=== PATIENT | male | born 1955 | race Caucasian/White ===

== ENCOUNTER 2022-01-10 18:43 | Observation (INO) ==
[2022-01-10] MEDS ORDERED: KETOROLAC 30 MG/ML VIAL IV ONE (18:59)
[2022-01-10] MEDS ORDERED: 0.9 % SODIUM CHLORIDE 1,000 ML IV ONE (18:59)
[2022-01-10] MEDS ORDERED: fentaNYL 100 MCG/2 ML VIAL IV ONE (19:29)
--- NOTE | 2022-01-10 19:53 | Emergency Department Note ---
Male Urogenital HPI General Chief complaint: Flank Pain Stated complaint: Kidney Stones Time Seen by Provider: 01/10/22 18:50 Source: patient Mode of arrival: ambulatory Limitations: no limitations History of Present Illness HPI Narrative: Narrative: Patient presents to the ED with complaints of right flank pain that started yesterday afternoon. He rates the pain 10/01. He also reports associated hematuria. He states that he recently had a kidney stone on the left side and feels the exact same way. He was evaluated by Dr. Bustos who had to go and surgically remove the stone also place a stent which was removed on 01/01/2022. Patient denies fever, chills, nausea, vomiting, abdominal trauma. He states the pain does radiate into his groin. Patient denies any other alleviating or aggravating factors. He states that he did take one of his oxycodone from his procedure which did help with some of the pain but it quickly came back. Related Data Home Medications Medication Instructions Recorded Confirmed atorvastatin 20 mg tablet 20 mg PO QHS 11/10/21 01/01/22 insulin glargine 100 unit/mL 40 unit subcut QPM 11/10/21 01/01/22 subcutaneous solution (Lantus U-100 Insulin) metformin 500 mg tablet 2,000 mg PO QPM 11/10/21 01/01/22 doxepin 50 mg capsule 50 mg PO QHS 12/18/21 01/01/22 indomethacin 25 mg capsule 25 mg PO TID PRN Pain 12/18/21 01/01/22 melatonin 3 mg capsule 6 mg PO HS 12/18/21 01/01/22 metoprolol tartrate 50 mg tablet 50 mg PO QAM 12/18/21 01/01/22 pen needle, diabetic 31 gauge x 12/18/21 01/01/22 5/32" tamsulosin 0.4 mg capsule 0.8 mg PO QHS 12/18/21 01/01/22 acetaminophen 500 mg tablet 1,000 mg PO DAILY PRN Pain 12/21/21 01/01/22 empagliflozin 25 mg tablet 12.5 mg PO QAM 12/21/21 01/01/22 semaglutide 1 mg/dose (4 mg/3 mL) 1 mg subcut WEEKLY 12/21/21 01/01/22 subcutaneous pen injector (Ozempic) Previous Rx's Medication Instructions Recorded hydrocodone 5 mg-acetaminophen 325 1 tab PO Q6H PRN pain #8 tabs 12/26/21 mg tablet sulfamethoxazole 800 1 tab PO BID #14 tabs 12/26/21 mg-trimethoprim 160 mg tablet (Bactrim DS) Allergies Allergy/AdvReac Type Severity Reaction Status Date / Time No Known Drug Allergies Allergy Verified 01/10/22 18:50 Review of Systems ROS ROS Narrative: Narrative: All systems ED: reviewed and negative except as stated. [facility] Narrative Patient History Narrative: Narrative: Medical/Surgical/Family History All Active Problems (Updated 01/10/22 @ 21:04 by Eduardo Haro DO) Calculus of kidney (Chronic) Type 2 diabetes mellitus with diabetic neuropathy (Chronic) HTN (hypertension) (Chronic) Back pain (Chronic) Neck pain (Chronic) Anxiety and depression (Chronic) HLP (hyperkeratosis lenticularis perstans) (Chronic) Allergic rhinitis (Chronic) Benign neoplasm of conjunctiva (Chronic) Cataract (Chronic) Chronic low back pain (Chronic) Dry eye (Chronic) Gout (Chronic) Headache disorder (Chronic) Hyperlipidemia (Chronic) Insomnia (Chronic) Memory loss (Chronic) Muscle spasm (Chronic) Myopia (Chronic) Painless hematuria (Chronic) Presbyopia (Chronic) Refractive errors (Chronic) Restless legs (Chronic) Shoulder pain (Chronic) TBI (traumatic brain injury) (Chronic) Right renal stone (Acute) Left renal stone (Acute) Left ureteral stone (Acute) Calculus of distal right ureter (Acute) Hydronephrosis of right kidney (Acute) Acute kidney injury (Acute) Medical History Allergic rhinitis Anxiety and depression Back pain Benign neoplasm of conjunctiva Calculus of kidney Cataract Chronic low back pain Dry eye Gout Headache disorder HLP (hyperkeratosis lenticularis perstans) HTN (hypertension) Hyperlipidemia Insomnia Memory loss Muscle spasm Myopia Neck pain Painless hematuria Presbyopia Refractive errors Restless legs Shoulder pain TBI (traumatic brain injury) Type 2 diabetes mellitus with diabetic neuropathy Surgical History History of fusion of cervical spine Family History Other No pertinent family history Social History Smoking Status: Never smoker Exam Narrative Narrative: Narrative: General Limitations: no limitations General appearance: Present alert Respiratory Respiratory: Present normal lung sounds bilaterally; Absent respiratory distress Cardiovascular Cardiovascular: Present regular rate and normal rhythm Adbominal Abdominal: Present soft and normal bowel sounds; Absent tenderness Back Back: Present CVA tenderness (R); Absent CVA tenderness (L) Neurological Neurological: Present oriented X3 and normal gait Psychiatric Psychiatric: Present normal affect and normal mood Skin Skin: Present warm (WNL) and intact Course Course Course Narrative: Patient was evaluated for right flank pain. Labs were obtained and show that patient acute kidney injury with elevated BUN/creatinine with a creatinine of 2.2. Patient given IV fluids, Toradol and some fentanyl for discomfort. CT abdomen pelvis obtained with image reviewed myself which revealed 9 mm x 7 mm obstructing right ureter stone with hydronephrosis. Case was discussed with on- call urologist recommend the patient be admitted to the hospital. Plan of care was discussed with patient expressed verbal understanding and agreement. Consultations Consultation #1: Case discussed with on-call urologist, Dr. Bustos, who recommend the patient be admitted for OR treatment tomorrow. Time: 21:01 Vital Signs Vital signs: Vital Signs Temperature 97.8 F 01/10/22 18:46 Pulse Rate 100 H 01/10/22 18:46 Respiratory Rate 16 01/10/22 18:46 Blood Pressure 149/85 01/10/22 18:46 Pulse Oximetry (%) 97 01/10/22 18:46 Oxygen Delivery Method 01/10/22 18:46 Temperature 97.8 F 01/10/22 18:46 Pulse Rate 88 01/10/22 20:15 Respiratory Rate 16 01/10/22 18:46 Blood Pressure 129/87 01/10/22 20:15 Pulse Oximetry (%) 98 01/10/22 20:15 Oxygen Delivery Method 01/10/22 18:46 MDM MDM Narrative Medical decision making narrative: Narrative: Differential Diagnosis Differential Diagnosis: Kidney stone, UTI Medical Records Medical records reviewed: Yes I reviewed the patient's medical records. Lab Data Lab results reviewed: Yes I reviewed the patient's lab results. Result diagrams: 01/10/22 19:21 Labs: Lab Results 01/10/22 Range/Units 19:21 WBC 11.1 H (4.5-11.0) K/mcL RBC 4.46 L (4.63-6.08) M/mcL Hgb 13.3 L (13.7-17.5) g/dL Hct 41.2 (40.1-51.0) % MCV 92.4 (80.0-100.0) fL MCH 29.8 (26.0-34.0) pg MCHC 32.3 (31.0-36.0) g/dL RDW 14.4 (11.5-14.5) % Plt Count 214 (140-440) K/mcL MPV 9.5 (8.8-12.5) fL Immature Gran % (Auto) 0.5 (0.0-0.5) % Neut % (Auto) 77.9 (38.0-78.0) % Lymph % (Auto) 12.2 L (15.5-49.0) % Kay % (Auto) 7.3 (1.0-12.0) % Eos % (Auto) 1.8 (0.0-7.0) % Baso % (Auto) 0.3 (0.0-2.0) % Lymph # (Auto) 1.35 L (1.50-4.80) K/mcL Kay # (Auto) 0.81 (0.10-0.90) K/mcL Eos # (Auto) 0.20 (0.00-0.70) K/mcL Baso # (Auto) 0.03 (0.00-0.30) K/mcL Immature Gran # 0.05 (0.00-0.05) K/mcl Absolute Neutrophils 8.64 H (1.80-8.00) K/mcL Radiology Data Radiology results reviewed: Yes I reviewed the patient's radiology results. Radiology results narrative: CT abdomen pelvis revealed 9 x 7 mm obstructing right ureteral stone with hydronephrosis Core Measures AMI Core Measures Followed: Yes Discharge Plan Patient/Caregiver Discharge Instructions Pt seen by MENTAL RETARDATION AIDE/PA only: No Clinical Impression: Calculus of distal right ureter, Hydronephrosis of right kidney, Acute kidney injury Patient Disposition: Xfer As Outpt/Obs ([facility]) Condition: Good Follow up with: Fili Perez ARNP [Primary Care Provider] - Prescriptions: No Action doxepin 50 mg capsule 50 mg PO QHS indomethacin 25 mg capsule 25 mg PO TID PRN (Reason: Pain) Rx Instructions: administer with food or milk melatonin 3 mg capsule 6 mg PO HS metoprolol tartrate 50 mg tablet 50 mg PO QAM (DME) pen needle, diabetic 31 gauge x 5/32" needle See Rx Instructions .Route Rx Instructions: As directed tamsulosin 0.4 mg capsule 0.8 mg PO QHS insulin glargine [Lantus U-100 Insulin] 100 unit/mL solution 40 unit subcut QPM atorvastatin 20 mg tablet 20 mg PO QHS metformin 500 mg tablet 2,000 mg PO QPM acetaminophen 500 mg Tablet 1,000 mg PO DAILY PRN (Reason: Pain) empagliflozin 25 mg Tablet 12.5 mg PO QAM Ozempic 1 mg/dose (4 mg/3 mL) Pen Injector 1 mg SUBCUT WEEKLY hydrocodone-acetaminophen 5-325 mg tablet 1 tab PO Q6H PRN (Reason: pain) Qty: 8 0RF sulfamethoxazole-trimethoprim [Bactrim DS] 800-160 mg tablet 1 tab PO BID Qty: 14 0RF
[2022-01-10 19:57] LABS: Basophils # (Auto) 0.03 K/mcL (0.00-0.30); Basophils % (Auto) 0.3 % (0.0-2.0); Eosinophils % (Auto) 1.8 % (0.0-7.0); Hematocrit 41.2 % (40.1-51.0); Hemoglobin 13.3 g/dL (13.7-17.5); Lymphocytes # (Auto) 1.35 K/mcL (1.50-4.80); Lymphocytes % (Auto) 12.2 % (15.5-49.0); Mean Cell Volume 92.4 fL (80.0-100.0); Mean Corpuscular HGB Conc 32.3 g/dL (31.0-36.0); Mean Platelet Volume 9.5 fL (8.8-12.5); Monocytes # (Auto) 0.81 K/mcL (0.10-0.90); Monocytes % (Auto) 7.3 % (1.0-12.0); Neutrophils % (Auto) 77.9 % (38.0-78.0); Platelet Count 214 K/mcL (140-440); RBC 4.46 M/mcL (4.63-6.08); Red Cell Distribution Width 14.4 % (11.5-14.5); WBC 11.1 K/mcL (4.5-11.0)
[2022-01-10] MEDS ORDERED: ONDANSETRON 4 MG/2 ML VIAL IV PRN (21:05)
[2022-01-10] MEDS ORDERED: NALOXONE HCL 0.4 MG/ML VIAL IV PRN (21:05)
[2022-01-10] MEDS ORDERED: morphine 2 MG/ML VIAL IV PRN (21:05)
[2022-01-10] MEDS ORDERED: HYDROcodone/APAP 5/325MG TABLET PO PRN (21:05)
[2022-01-10] MEDS: 0.9 % SODIUM CHLORIDE 1,000 ML IV SCH (21:37)
[2022-01-10] MEDS ORDERED: DEXTROSE 50% 50 ML VIAL IV PRN (23:05)
[2022-01-10] MEDS ORDERED: DEXTROSE 31 GM ORAL.SUSP PO PRN (23:05)
--- NOTE | 2022-01-11 03:04 | Cat Scan Report ---
CLINICAL INFORMATION: Right flank pain COMPARISON: 12/14/2021 TECHNIQUE: 0.625 mm helical slices were obtained from the mid heart through the subtrochanteric regions. Following reconstruction, 2.5 mm sagittal, coronal and axial reformatted images were processed and reviewed at bone and soft tissue windows.The exam was performed using radiation dose optimization techniques including, but not limited to, automated exposure control, adjustment of the mA and/or kV according to patient size and use of iterative reconstruction technique. FINDINGS: The lung bases are clear. No effusions. The visualized heart is grossly normal. Abdominal images show the noncontrasted gallbladder and bile ducts, liver,, adrenal glands, spleen, pancreas and aorta are normal in size, configuration and attenuation without focal lesion. There is no free air, free fluid or adenopathy. Both noncontrasted kidneys are normal in size, position, configuration and attenuation: The left is 11 cm in length and the right is 12 cm in length. There is an 8 x 6 mm stone in the distal right ureter that approximately 5 cm above the UVJ. It results in severe right hydroureter/hydronephrosis and mild right nephric and perinephric edema. Multiple nonobstructing stones are again seen within the calyces of both kidneys: 4 mm mid calyx right kidney, 2 mm inferior calyx right kidney, two in the inferior calyces of the right kidney 4 mm. In the left side 4 mm stone inferior calyx. There is also a 2.4 cm simple cyst superior pole left kidney. Pelvic images show moderate enlargement of the prostate with transverse dimension 5.6 cm. Mild diffuse wall thickening of the urinary bladder is likely related to chronic bladder outlet narrowing from prostatism. Scattered sigmoid diverticuli noted, but no evidence of diverticulitis. The remaining colon, retrocecal appendix, small bowel and stomach are grossly normal. Bone windows show three screws transfixing an old femoral neck fracture which is solidly unified in anatomic alignment. There is a 2.2 cm focus of AVN in the superior left femoral head. IMPRESSION: 1. 8 mm stone in the distal right ureter resulting in severe right hydroureter/hydronephrosis. 2. Multiple smaller nonobstructing stones in the calyces of both kidneys. 3. 2 cm focus of AVN-superior left femoral head. 4. Moderate prostate enlargement with mild diffuse wall thickening of urinary bladder suggesting chronic bladder outlet narrowing Interpreted and Authenticated by: Jonathan Zhang 01/11/22
[2022-01-11] MEDS: 0.9 % SODIUM CHLORIDE 1,000 ML IV SCH ×2 (07:25→21:16)
[2022-01-11] MEDS: INSULIN LISPRO 1 UNIT/0.01 ML UNIT SQ SCH ×4 (07:47→20:58)
--- NOTE | 2022-01-11 09:09 | Urology History & Physical ---
HPI History of Present Illness Patient information: Note initiated : 01/11/22 at 9:03 am Service Date, if different from initiated Date: [] Patient: Jose Luis Carr 66 y/o M admitted on 01/10/22 for Kidney Stones. Chief Complaint: [Right flank pain] Chief complaint: Right flank pain History of present illness: Jose Luis is a 66-year-old male who was recently taken to the operating room to treat left-sided renal and ureteral stones. The left side was completely treated and his left ureteral stent was removed within the past week. He presented to our emergency department last night with complaints of the acute onset of right flank pain. CT scan in the ER revealed a 9 mm right distal ureteral stone with obstruction and a 6 mm stone in the right lower pole. We kept him in the hospital overnight for emergent treatment of his right ureteral and renal stones. Review of Systems All systems: reviewed and no additional remarkable complaints except as stated Constitutional Constitutional: Present as per HPI Genitourinary Genitourinary: as per HPI, dysuria and flank pain PFSH PFSH All Active Problems (Updated 01/11/22 @ 09:07 by Han Bustos MD) Right flank pain (Acute) Calculus of distal right ureter (Acute) Hydronephrosis of right kidney (Acute) Acute kidney injury (Acute) Left ureteral stone (Acute) Left renal stone (Acute) Right renal stone (Acute) Calculus of kidney (Chronic) Type 2 diabetes mellitus with diabetic neuropathy (Chronic) HTN (hypertension) (Chronic) Back pain (Chronic) Neck pain (Chronic) Anxiety and depression (Chronic) HLP (hyperkeratosis lenticularis perstans) (Chronic) Allergic rhinitis (Chronic) Benign neoplasm of conjunctiva (Chronic) Cataract (Chronic) Chronic low back pain (Chronic) Dry eye (Chronic) Gout (Chronic) Headache disorder (Chronic) Hyperlipidemia (Chronic) Insomnia (Chronic) Memory loss (Chronic) Muscle spasm (Chronic) Myopia (Chronic) Painless hematuria (Chronic) Presbyopia (Chronic) Refractive errors (Chronic) Restless legs (Chronic) Shoulder pain (Chronic) TBI (traumatic brain injury) (Chronic) Medical History Allergic rhinitis Anxiety and depression Back pain Benign neoplasm of conjunctiva Calculus of kidney Cataract Chronic low back pain Dry eye Gout Headache disorder HLP (hyperkeratosis lenticularis perstans) HTN (hypertension) Hyperlipidemia Insomnia Memory loss Muscle spasm Myopia Neck pain Painless hematuria Presbyopia Refractive errors Restless legs Shoulder pain TBI (traumatic brain injury) Type 2 diabetes mellitus with diabetic neuropathy Surgical History History of fusion of cervical spine Family History Other No pertinent family history Social History smoking status: Never smoker MEDS/ALLERGIES Home Medications and Allergies Home Medications Medication Instructions Recorded Confirmed Type atorvastatin 20 mg tablet 20 mg PO QHS 11/10/21 01/10/22 History insulin glargine 100 unit/mL 40 unit subcut QPM 11/10/21 01/10/22 History subcutaneous solution (Lantus U-100 Insulin) metformin 500 mg tablet 2,000 mg PO QPM 11/10/21 01/10/22 History doxepin 50 mg capsule 50 mg PO QHS 12/18/21 01/10/22 History indomethacin 25 mg capsule 25 mg PO TID PRN Pain 12/18/21 01/10/22 History melatonin 3 mg capsule 6 mg PO HS 12/18/21 01/10/22 History metoprolol tartrate 50 mg tablet 50 mg PO QAM 12/18/21 01/10/22 History pen needle, diabetic 31 gauge x 12/18/21 01/10/22 History 5/32" tamsulosin 0.4 mg capsule 0.8 mg PO QHS 12/18/21 01/10/22 History acetaminophen 500 mg tablet 1,000 mg PO DAILY PRN Pain 12/21/21 01/10/22 History empagliflozin 25 mg tablet 12.5 mg PO QAM 12/21/21 01/10/22 History semaglutide 1 mg/dose (4 mg/3 mL) 1 mg subcut WEEKLY 12/21/21 01/10/22 History subcutaneous pen injector (Ozempic) hydrocodone 5 mg-acetaminophen 325 1 tab PO Q6H PRN pain #8 tabs 12/26/21 01/10/22 Rx mg tablet Allergies Allergy/AdvReac Type Severity Reaction Status Date / Time No Known Drug Allergies Allergy Verified 01/10/22 18:50 Physical Examination Vital Signs Vital signs: Temp Pulse Resp BP Pulse Ox O2 Del Method 98.2 F 84 20 136/74 97 01/11/22 06:57 01/11/22 06:57 01/11/22 06:57 01/11/22 06:57 01/11/22 06:57 01/11/22 06:57 General physical appearance General physical exam: well developed, well nourished, no distress and moderate pain Head Head exam IM: Present atraumatic, normal inspection and normocephalic Cardiovascular Cardiovascular exam IM: Present normal rate and rhythm Respiratory Respiratory exam: normal expansion, normal respiratory effort and clear to auscultation Abdomen Abdomen: Present soft and non tender Neurologic Neurologic: Present normal coordination and normal sensation Psychiatric Psychiatric: Present oriented to time, oriented to person, oriented to place, speech is normal and memory intact Results Labs Result diagrams: 01/10/22 19:21 Labs: Abnormal lab results 01/10/22 Range/Units 19:21 WBC 11.1 H (4.5-11.0) K/mcL RBC 4.46 L (4.63-6.08) M/mcL Hgb 13.3 L (13.7-17.5) g/dL Lymph % (Auto) 12.2 L (15.5-49.0) % Lymph # (Auto) 1.35 L (1.50-4.80) K/mcL Absolute Neutrophils 8.64 H (1.80-8.00) K/mcL All other labs normal. Imaging CT scan - abdomen: report reviewed and image reviewed CT scan - pelvis: report reviewed and image reviewed A/P Assessment and plan (1) Calculus of distal right ureter: Status: Acute (2) Hydronephrosis of right kidney: Status: Acute (3) Right renal stone: Status: Acute (4) Right flank pain: Status: Acute Narrative A/P Narrative: Jose Luis is a 66-year-old male with a known history of bilateral renal and ureteral stones. He recently went to the operating room for treatment of the left-sided stones we completed treatment of the left side and he now presents a cutely with the acute onset of right flank pain. Noncontrast CT scan performed in the ER last night showed a right lower pole stone and an obstructing right distal ureteral stone measuring about 9 mm. We discussed keeping him overnight for observation and taking to the operating room urgently today for treatment of the right renal and ureteral stones. We discussed going to the operating room and under general anesthesia, as an outpatient, performing cystoscopy, right retrograde pyelogram, right ureteroscopy, right laser lithotripsy, right ureteral stone basketing, and right ureteral stent placement. I discussed the procedure with the patient. We discussed possible risks and side effects including, but not limited to: bleeding, infection, damage to the urethra and to the bladder, damage to the right ureter and right kidney, postoperative urgency and frequency, postoperative hematuria, incomplete treatment of the stone, need for further treatment and/or surgery, small risks of heart attack, stroke and , and risks of anesthesia that the patient will discuss separately with the anesthesia provider prior to the procedure. The patient understands that at the time of the procedure we will place a right ureteral stent. I explained what this is and that it is a temporary device. This will need to be removed in the office approximately 1 week after definitive treatment of the stone. The patient understands the procedure and its associated risks. A signed consent form was obtained. Time Spent With Patient Time: Total time spent is greater than 50% in coordination of care (as documented) at patient's floor/unit and/or counseling patient:
[2022-01-11] MEDS ORDERED: AMPICILLIN SODIUM 2 GM VIAL IV ONE (10:24)
[2022-01-11] MEDS ORDERED: GENTAMICIN SULFATE 240 MG in 0.9 % SODIUM CHLORIDE 250 ML IV ONE (10:30)
[2022-01-11] MEDS ORDERED: DEXTROSE 50% 50 ML SYRINGE IV PRN (10:45)
[2022-01-11] MEDS ORDERED: AMPICILLIN SODIUM 2 GM in 0.9 % SODIUM CHLORIDE 100 ML IV ONE (10:45)
[2022-01-12] MEDS: INSULIN LISPRO 1 UNIT/0.01 ML UNIT SQ SCH ×2 (06:34→11:31)
--- NOTE | 2022-01-12 07:06 | Discharge Plan ---
Discharge Plan Patient/Caregiver Discharge Instructions Activity: increase activity as tolerated Diet: Regular Diet Prescriptions: New hydrocodone-acetaminophen 5-325 mg tablet 1 tab PO Q6H PRN (Reason: pain) Qty: 8 0RF sulfamethoxazole-trimethoprim [Bactrim DS] 800-160 mg tablet 1 tab PO BID Qty: 14 0RF diazepam 10 mg tablet 10 mg PO TID PRN (Reason: anxiety) 1 Days Qty: 1 0RF Rx Instructions: Take one tablet by mouth one hour prior to stent removal Continued doxepin 50 mg capsule 50 mg PO QHS indomethacin 25 mg capsule 25 mg PO TID PRN (Reason: Pain) Rx Instructions: administer with food or milk melatonin 3 mg capsule 6 mg PO HS metoprolol tartrate 50 mg tablet 50 mg PO QAM (DME) pen needle, diabetic 31 gauge x 5/32" needle See Rx Instructions .Route Rx Instructions: As directed tamsulosin 0.4 mg capsule 0.8 mg PO QHS insulin glargine [Lantus U-100 Insulin] 100 unit/mL solution 40 unit subcut QPM atorvastatin 20 mg tablet 20 mg PO QHS metformin 500 mg tablet 2,000 mg PO QPM acetaminophen 500 mg Tablet 1,000 mg PO DAILY PRN (Reason: Pain) empagliflozin 25 mg Tablet 12.5 mg PO QAM Ozempic 1 mg/dose (4 mg/3 mL) Pen Injector 1 mg SUBCUT WEEKLY hydrocodone-acetaminophen 5-325 mg tablet 1 tab PO Q6H PRN (Reason: pain) Qty: 8 0RF Follow Up Plan Follow up with: Han Bustos MD [Physician] - 01/18/22 3:30 pm Fili Perez ARNP [Primary Care Provider] - Patient Disposition: Home, Self-Care Prognosis: Good Discharge Orders: Discharge Order (Routine); Ordered 01/12/22 Ordered By: Han Bustos
[2022-01-12] MEDS ORDERED: AMPICILLIN SODIUM 2 GM VIAL IV ONE (07:08)
--- NOTE | 2022-01-12 07:14 | Urology Progress Note ---
SUBJECTIVE Subjective Patient information: Note initiated : 01/12/22 at 7:06 am Service Date, if different from initiated Date: [] Patient: Jose Luis Carr 66 y/o M admitted on 01/10/22 for Kidney Stones. Chief Complaint: [Right flank pain] Principal diagnosis: Right ureteral and right renal stone. Interval history: Patient was given orange juice prior to surgery yesterday and surgery was postponed until this morning. He is feling better this morning. His pain is currently well controlled and he is well-hydrated. Constitutional Vitals: Vital Signs Temp Pulse Resp BP Pulse Ox O2 Del Method 97.7 F 78 18 133/73 99 01/12/22 04:00 01/12/22 04:00 01/12/22 04:00 01/12/22 04:00 01/12/22 04:00 01/12/22 04:00 Period Temp Pulse Resp BP Sys/Olson Pulse Ox O2 Del Method O2 Flow Rate Last 24 Hr 97.2 F-99 F 78-116 - 129-158/73-100 93-99 Room Air-Room Air Intake and Output 01/11/22 01/12/22 01/12/22 21:59 05:59 13:59 Intake Total 1360 300 Output Total 1300 1850 Balance 60 -1550 Weight 88.405 kg Intake & Output: Intake & Output 01/11/22 01/12/22 01/12/22 21:59 05:59 13:59 Intake Total 1360 300 Output Total 1300 1850 Balance 60 -1550 Weight 88.405 kg Intake: IV 1000 Sodium Chloride 0.9% 1,000 ml @ 1000 100 mls/hr IV .Q10H [facility] Rx#: [id number] Oral 360 300 Output: Void Amount 1300 1850 Other: Meal Dinner Percent of Meal Consumed 100% Feeding Ability Independent Urine Appearance Clear Urine Color Pale Urine Odor Normal General appearance: average body habitus, cooperative and no acute distress Respiratory Respiratory exam: Present normal respiratory exam and CTAB Cardiovascular Cardiovascular exam: Present normal rate and rhythm Neurological Exam Neurological exam: Present alert and oriented X3 Psychiatric Psychiatric exam: Present normal affect and normal mood A/P Assessment and plan (1) Right flank pain: Status: Acute (2) Calculus of distal right ureter: Status: Acute (3) Hydronephrosis of right kidney: Status: Acute (4) Right renal stone: Status: Acute Plan Jose Luis is a 66 year old man with a right distal ureteral stone and a right renal stone with right flank pain and right hydronephrosis. We this morning discussed going to the operating room and under general anesthesia, as an outpatient, performing cystoscopy, right retrograde pyelogram, right ureteroscopy, right laser lithotripsy, right ureteral stone basketing, and right ureteral stent placement. I discussed the procedure with the patient. We discussed possible risks and side effects including, but not limited to: bleeding, infection, damage to the urethra and to the bladder, damage to the right ureter and right kidney, postoperative urgency and frequency, postoperative hematuria, incomplete treatment of the stone, need for further treatment and/or surgery, small risks of heart attack, stroke and , and risks of anesthesia that the patient will discuss separately with the anesthesia provider prior to the procedure. The patient understands that at the time of the procedure we will place a right ureteral stent. I explained what this is and that it is a temporary device. This will need to be removed in the office approximately 1 week after definitive treatment of the stone. The patient understands the procedure and its associated risks. A consent form was signed yesterday. Time Spent With Patient Time: Total time spent is greater than 50% in coordination of care (as documented) at patient's floor/unit and/or counseling patient:
[2022-01-12] MEDS ORDERED: SUGAMMADEX SODIUM 200 MG/2 ML VIAL IV ONE (07:25)
[2022-01-12] MEDS ORDERED: LIDOCAINE HCL/PF 100 MG/5 ML SYRINGE IV ONE (07:25)
[2022-01-12] MEDS ORDERED: ROCURONIUM 10 MG/ML ML IV ONE (07:25)
[2022-01-12] MEDS ORDERED: MAGNESIUM SULFATE 2 GM/50 ML BAG IV ONE (07:25)
[2022-01-12] MEDS ORDERED: fentaNYL 100 MCG/2 ML VIAL IV ONE (07:25)
[2022-01-12] MEDS ORDERED: PROPOFOL 200 MG/20 ML VIAL IV ONE (07:25)
[2022-01-12] MEDS ORDERED: GLYCOPYRROLATE 0.2 MG/ML VIAL IV ONE (07:25)
[2022-01-12] MEDS ORDERED: PHENYLephrine 1 MG/10 ML SYRINGE (ANEST) ONE (07:25)
[2022-01-12] MEDS ORDERED: KETAMINE 50 MG/ML Syringe (ANEST) IV ONE (07:25)
[2022-01-12] MEDS ORDERED: DEXAMETHASONE 10 MG/ML VIAL ONE (07:25)
[2022-01-12] MEDS ORDERED: MIDAZOLAM 2 MG/2 ML VIAL ONE (07:25)
[2022-01-12] MEDS ORDERED: ONDANSETRON 4 MG/2 ML VIAL ONE (07:25)
[2022-01-12] MEDS ORDERED: GENTAMICIN SULFATE 240 MG in 0.9 % SODIUM CHLORIDE 250 ML IV ONE (07:30)
[2022-01-12] MEDS ORDERED: AMPICILLIN SODIUM 2 GM in 0.9 % SODIUM CHLORIDE 100 ML IV ONE (07:30)
[2022-01-12] MEDS ORDERED: LIDOCAINE 2% URO-JET 10 ML JEL.PF.APP UR ONE (07:30)
[2022-01-12] MEDS ORDERED: IOVERSOL 20 ML VIAL IJ ONE (07:30)
[2022-01-12] MEDS ORDERED: MEPERIDINE 25 MG/ML VIAL IV PRN (07:43)
[2022-01-12] MEDS ORDERED: fentaNYL 100 MCG/2 ML VIAL IV PRN (07:43)
[2022-01-12] MEDS ORDERED: ONDANSETRON 4 MG/2 ML VIAL IV PRN ×2 (07:43→08:26)
[2022-01-12] MEDS ORDERED: ACETAMINOPHEN 1,000 MG/100 ML BAG IV ONE (07:43)
[2022-01-12] MEDS ORDERED: LACTATED RINGERS 250 ML IV PRN (07:43)
[2022-01-12] MEDS ORDERED: IPRATROPIUM/ALBUTEROL 3 ML AMPUL.NEB NEB PRN (07:43)
[2022-01-12] MEDS ORDERED: LABETALOL 5 MG/ML ML IV PRN (07:43)
[2022-01-12] MEDS ORDERED: NALOXONE HCL 0.4 MG/ML VIAL IV PRN (07:43)
[2022-01-12] MEDS ORDERED: METOPROLOL TARTRATE 5 MG/5 ML VIAL IV PRN (07:43)
[2022-01-12] MEDS ORDERED: METHOCARBAMOL 1,000 MG/10 ML VIAL IV PRN (07:43)
[2022-01-12] MEDS ORDERED: FLUMAZENIL 0.1 MG/ML ML IV PRN (07:43)
[2022-01-12] MEDS ORDERED: LACTATED RINGERS 1,000 ML IV SCH (07:45)
--- NOTE | 2022-01-12 08:21 | Operative Note ---
Brief Operative Note Date of procedure: 01/12/22 Pre-op diagnosis: 9 mm right distal ureteral stone and 6 mm right lower pole s tone Post-op diagnosis: same Procedure: Cystoscopy, right retrograde pyelogram, right ureteroscopy, right holmium laser lithotripsy, right ureteral stone basketing of right distal ureteral stone, and right laser lithotripsy of right renal stone, and right ureteral stent placement. Grafts/Implants: Yes (6 Lithuanian by 24 cm right ureteral stent with no string) Anesthesia: GETA Findings: 9 mm right distal ureteral stone with obstruction and 6 mm right lower pole stone without obstruction. Complications: other (Small penile skin tears proximally on the dorsal penile shaft) Complications Description: Post procedure 2 small tears were noted in the penile skin on the dorsal proximal penile shaft. This may have been secondary to friable tissue and tension on the penis. During the procedure Surgeon: Han Bustos Estimated blood loss (cc): 5 Specimens Removed/Pathology: other (Stone for analysis) Condition: stable Disposition: PACU Operative Note Operative Note: After obtaining informed consent from the patient, he was brought to the operating room was placed upon on the operating table. General anesthesia was provided. He was repositioned in the dorsolithotomy position was prepped and draped in the usual sterile fashion. Attention was directed to the urethral meatus where a 21 Lithuanian cystoscope was passed per urethra and into the bladder. The bladder was inspected and was seen to be free of tumors. There was some sand within the bladder. The right ureteral orifice was cannulated using a 5 Lithuanian open-end ureteral catheter and a right retrograde pyelogram was performed that showed obstruction of the right distal ureter approximately 2 cm above the ureterovesical junction due to a 9 mm stone. 0.3 Lithuanian sensor wire was passed through the right ureteral orifice and alongside the stone and under fluoroscopic guidance into the right upper pole. The cystoscope was removed and was replaced with a long semirigid ureteroscope which was passed per urethra into the bladder and through the right ureteral orifice until the stone was visualized. Using a 365 m laser fiber to power of both fragmentation and dusting settings the stone was fragmented into small pieces which were then basketed out using a 1.9 [place]ian nitinol tipless basket. Once the stone was removed from the distal ureter, a dual-lumen catheter was passed over the wire. A right retrograde pyelogram was performed through the second port a dual-lumen catheter. There was seem to be severe proximal ureterectasis and moderate right hydronephrosis. A second 0.38 [place]ian extra-stiff wire was passed through the second port of the dual-lumen catheter and into the right upper pole. The dual- lumen catheter was removed. The sensor wire was affixed to the drapes as a safety wire. The extra-stiff wire was used as a working wire. A 12-14 Lithuanian 35 cm ureteral access sheath was then passed over the extra-stiff wire into the proximal ureter. The flexible digital ureteroscope was then passed through the ureteral access sheath and under direct vision into the right kidney. The upper middle and lower pole calyces were inspected. In the lower pole calyx was a 6 mm stone. Using the 365 m laser fiber the stone was dusted into tiny particles. I then remove the ureteral access sheath while inspecting the entire length of the ureter from uteropelvic junction to the ureterovesical junction. No further stones or injury to the ureter was seen. There was significant inflammation in the area of stone impaction in the distal ureter. The ureteral access sheath and ureteroscope were removed. The remaining wire was backloaded through the 21 Lithuanian cystoscope which was passed into the bladder. A 6 Lithuanian by 24 cm right double stent with no string was passed over the wire and under fluoroscopic guidance into the right renal pelvis. The wire was removed leaving a good curl in the renal pelvis and a good coil in the bladder. The bladder was irrigated and drained. Stone fragments were collected and passed off the table as specimens for stone analysis. Lidocaine jelly was placed in urethra and the bladder the patient was returned to the supine position. Upon draping the patient he was seen to have 2 small skin tears on the dorsal, proximal penile shaft. These appear to be minor and possibly from tension on the penis during the procedure and friable tissue. Bacitracin was applied to these wounds. The patient was then awakened and returned to the recovery in stable condition.
[2022-01-12] MEDS ORDERED: HYDROcodone/APAP 5/325MG TABLET PO PRN (08:26)
[2022-01-12] MEDS ORDERED: HYDROmorphone 1 MG/ML SYRINGE IV PRN (08:26)
[2022-01-12] MEDS: 0.9 % SODIUM CHLORIDE 1,000 ML IV SCH (09:35)
[2022-01-12] MEDS ORDERED: 0.9 % SODIUM CHLORIDE 10 ML SYRINGE IV SCH (14:00)
--- NOTE | 2022-01-12 16:08 | XRay Report ---
CLINICAL INFORMATION: Right ureteral stent placement. 8 mm obstructing stone distal right ureter COMPARISON: None. FINDINGS: Right retrograde ureterogram shows moderate right hydroureter/hydronephrosis due to obstructing distal ureteral stone. Ureteral stent was successfully placed resulting in good drainage. IMPRESSION: Successful placement of right ureteral stent. Total fluoroscopy time 0.9 minutes. Interpreted and Authenticated by: Jonathan Zhang 01/12/22
== END 2022-01-12 12:02 | disposition home or self-care (01) ==
LOC: ED 18:43 → MEDSUR 18:43
PROVIDERS: ADMIT Urology; ATTEND Urology